=== PATIENT | female | born 1960 | race Two or more races ===

== ENCOUNTER 2021-07-15 16:57 | Emergency (ER) | payer MEDICAID ==
[~2021-07-15] VITALS: Ht 152.4 cm; Wt 54.4 kg
--- NOTE | 2021-07-15 17:30 | NUR ---
Recived pt walking in from home c/o dizzness for 2 hrs dineses any weekness or nubness in upeer or lower extramity seen by
--- NOTE | 2021-07-15 17:30 | NUR ---
inserted ango catheter # 20 on rt ac bllod drow and sent to lab and to ct scan of head via betsy
[2021-07-15 17:55] LABS: BASOPHILS # (AUTO) 0.1 K/uL (0.0-0.2); BASOPHILS % (AUTO) 0.5 % (0.0-2.0); EOSINOPHILS % (AUTO) 0.4 % (0.0-6.0); HEMATOCRIT 39 % (33-45); HEMOGLOBIN 13.1 g/dL (11.5-14.8); LYMPHOCYTES # (AUTO) 1.9 K/uL (0.8-4.8); LYMPHOCYTES % (AUTO) 16.1 % (20.0-44.0); MEAN CORPUSCULAR HGB CONC 34 g/dl (31.0-36.0); MEAN CORPUSCULAR VOLUME 92 fL (82-100); MONOCYTES # (AUTO) 0.4 K/uL (0.1-1.30); MONOCYTES % (AUTO) 3.6 % (2.0-12.0); NEUTROPHILS # (AUTO) 9.5 K/uL (1.8-8.9); NEUTROPHILS % (AUTO) 79.4 % (43.0-81.0); PLATELET COUNT (AUTO) 214 K/uL (150-450); RED BLOOD CELL COUNT(AUTO) 4.21 MIL/uL (4.0-5.2)
[2021-07-15] MEDS ORDERED: MECLIZINE HCL 25 MG TABLET ONE (17:55)
[2021-07-15] MEDS ORDERED: ONDANSETRON HCL/PF 4 MG/2 ML VIAL ONE (17:55)
[2021-07-15] MEDS ORDERED: IV NS 0.9% 1,000 ML BAG IV ONE (18:00)
[2021-07-15] MEDS ORDERED: ONDANSETRON HCL/PF 4 MG/2 ML VIAL IVP ONE (18:00)
[2021-07-15] MEDS ORDERED: MECLIZINE HCL 12.5 MG TABLET PO ONE (18:00)
[2021-07-15 18:11] LABS: ALANINE AMINOTRANSFERASE 48 U/L (12-78); ALBUMIN 4.2 g/dL (3.4-5.0); ALKALINE PHOSPHATASE 75 U/L (46-116); ASPARTATE AMINOTRANSFERASE 27 U/L (15-37); BILIRUBIN,DIRECT 0.1 mg/dL (0.0-0.2); BILIRUBIN,TOTAL 0.3 mg/dL (0.2-1.0); CARBON DIOXIDE 24 mmol/L (21-32); CHLORIDE 105 mmol/L (98-107); CREATININE 0.9 mg/dL (0.6-1.3); GLUCOSE 146 mg/dL (74-106); POTASSIUM 3.4 mmol/L (3.5-5.1); SODIUM SERUM 140 mmol/L (136-145); TOTAL PROTEIN, SERUM 7.7 g/dL (6.4-8.2); UREA NITROGEN, BLOOD 12 mg/dL (7-18)
--- NOTE | 2021-07-15 19:00 | NUR ---
Nausea and dizzness resolve after medicatin was given pt looks beatter and improving responded tx
--- NOTE | 2021-07-15 19:25 | NUR ---
hand off to NOREEN RN AT bed side
--- NOTE | 2021-07-15 20:00 | NUR ---
RECEIVED PT WITH AT BEDSIDE. NO COMPLAINTS OF DIZZINESS. WILL CONTINUE TO MONITOR.
[2021-07-15] MEDS ORDERED: ONDA4TAB5 PO (22:14)
[2021-07-15] MEDS ORDERED: MECL-159 PO (22:14)
--- NOTE | 2021-07-15 22:42 | NUR ---
PT DISCHARGE TO HOME WITH . DENIES ANY DIZZINESS. D/C INSTRUCTIONS GIVEN, VERBALIZED UNDERSTANDING.
[2021-07-15 22:53] VITALS: BP 140/75
== END 2021-07-15 22:45 | disposition home or self-care (01) ==
LOC: ER 17:10
DX: R42 Dizziness and giddiness (principal); R11.2 Nausea with vomiting, unspecified; I10 Essential (primary) hypertension; Z86.69 Personal history of other diseases of the nervous system and sense organs; Z79.899 Other long term (current) drug therapy
CPT/HCPCS: 36415; 70450; 80048; 80076; 84484; 85025; 93005; 96361; 96374; 99285; J2405; J7030; J8597